=== PATIENT | male | born 1975 | race Caucasian/White ===

== ENCOUNTER 2018-08-19 08:53 | Emergency (ER) | payer OTHER ==
[~2018-08-19] VITALS: Ht 170.2 cm; Wt 59.0 kg
[~2018-08-19 08:53] MED LIST: LORA10 PO; MONT10T PO
[2018-08-19 11:09] LABS: Source, Urine Clean Catch
[2018-08-19 11:14] LABS: Bilirubin, Urine Neg (Neg); Blood, Urine Neg (Neg); Glucose Qualitative, Urine Neg (Neg); Ketones, Urine Neg (Neg); Leukocyte Esterase, Urine Neg (Neg); Nitrite, Urine Neg (Neg); Protein, Urine Neg (Neg); Specific Gravity, Urine 1.025 (1.003-1.022); Urobilinogen, Urine NORM (Normal)
[2018-08-19 11:32] LABS: Appearance, Urine Clear (Clear); Color, Urine Yellow (P-Yellow)
[2018-08-19] MEDS ORDERED: IBUP600 PO (12:01)
== END 2018-08-19 12:18 | disposition home or self-care (01) ==
LOC: ER 08:53
PROVIDERS: Emergency Medicine
DX: R10.2 Pelvic and perineal pain (principal); R10.31 Right lower quadrant pain; Z88.8 Allergy status to other drugs, medicaments and biological substances
CPT/HCPCS: 76857; 76870; 81003; 99284-25